=== PATIENT | female | born 1965 | race Caucasian/White ===

== ENCOUNTER 2018-02-06 18:44 | Emergency (ER) | payer OTHER ==
--- NOTE | 2018-02-06 18:51 | PDOC ---
Rapid Medical Evaluation Time Seen by Provider: 02/06/18 18:48 Medical Evaluation: Allergies Allergy/AdvReac Type Severity Reaction Status Date / Time No Known Allergies Allergy Verified 04/16/17 07:38 02/06/18 18:49 Healthy 53-year-old female smoker s/p shoulder surgery today in [place], presents stating "I can't breathe". Sensation began while in PACU, but has been worsening. Not taking pain meds. Alert, oriented, no distress. RRR, S1/S2. Lungs CTAB, breath sounds present and equal bilaterally. Shoulder dressing clean and dry. -EKG -Cardiac labs -CXR -To Main ED for further evaluation
[2018-02-06 18:52] VITALS: BP 143/85; PULSE 70; TEMP 98.4; BMI 30.7
[2018-02-06 19:55] LABS: EOS % 2.7 % (0-4.5); HEMATOCRIT 39.3 % (32.4-45.2); LYMPH % 23.3 % (8-40); MCH 27.5 pg (25.7-33.7); MCHC 33.1 g/dl (32.0-36.0); MEAN CELL VOLUME 82.9 fl (80-96); MEAN PLT VOLUME 9.1 fl (7.5-11.1); MONO % 5.5 % (3.8-10.2); NEUT % 67.5 % (42.8-82.8); PLATELET COUNT 230 K/MM3 (134-434); RBC 4.74 M/mm3 (3.60-5.2); RDW 15.1 % (11.6-15.6); WHITE BLOOD COUNT 10.4 K/mm3 (4.0-10.0)
[2018-02-06 20:13] LABS: INR 1.03 (0.83-1.09); PROTHROMBIN TIME (PATIENT) 11.6 SEC (9.7-13.0)
[2018-02-06 20:19] LABS: ALBUMIN 3.8 g/dl (3.4-5.0); ANION GAP 11 MMOL/L (8-16); BILIRUBIN,TOTAL 0.4 mg/dL (0.2-1.0); BLOOD UREA NITROGEN 11 mg/dL (7-18); CALCIUM 8.6 mg/dL (8.5-10.1); CHLORIDE 107 mmol/L (98-107); CO2 24 mmol/L (21-32); CREATININE 0.7 mg/dL (0.55-1.02); GLUCOSE,RANDOM 91 mg/dL (74-106); POTASSIUM 4.4 mmol/L (3.5-5.1); SGOT/AST 18 U/L (15-37); SGPT/ALT 23 U/L (12-78); SODIUM 142 mmol/L (136-145)
[2018-02-06 20:22] LABS: ALK PHOS 80 U/L (45-117)
--- NOTE | 2018-02-06 20:54 | PDOC ---
History of Present Illness - General Chief Complaint: Shortness of Breath Stated Complaint: SHORTNESS OF BREATH Time Seen by Provider: 02/06/18 18:48 - History of Present Illness Initial Comments: 02/06/18 22:12 The patient is a 53 year old female with no significant PMH who presents for evaluation of shortness of breath. The patient is accompanied by family who assisted in providing the history. They note that the patient had surgery on her shoulder today in [place] and she has noted shortness of breath since recovering in PACU and after discharging that has been intermittent prompting her presentation to the ED for further evaluation. She notes that she has right shoulder pain and has not taken any pain medications since her discharge. She otherwise denies fevers, chills, chest pain, nausea, vomiting, abdominal pain, or changes with urination or bowel movements. Past History - Past Medical History Allergies/Adverse Reactions: Allergies Allergy/AdvReac Type Severity Reaction Status Date / Time No Known Allergies Allergy Verified 02/06/18 18:49 Home Medications: Ambulatory Orders Ibuprofen [Motrin -] 400 mg PO TID #21 tablet 04/16/17 COPD: No DVT: No - Immunization History Immunization Up to Date: No - Suicide/Smoking/Psychosocial Hx Smoking Status: Yes Smoking History: Current every day smoker Have you smoked in the past 12 months: Yes Number of Cigarettes Smoked Daily: 10 Information on smoking cessation initiated: Yes 'Breaking Loose' booklet given: 02/06/18 Hx Alcohol Use: No Drug/Substance Use Hx: No Substance Use Type: None Review of Systems - Review of Systems Comments:: 02/06/18 22:15 Constitutional: No fevers, chills, fatigue, malaise HEENT: No Rhinorrhea, nasal congestion, visual changes Cardiovascular: No chest pain, syncope, palpitations, lightheadedness Respiratory: SOB No Cough, Hemoptysis, Gastrointestinal: No Abdominal pain, Nausea, Vomiting, Constipation, Diarrhea, Melena Genitourinary: No Dysuria, Frequency, Urgency, Hesitancy, Hematuria, Flank pain Musculoskeletal: Right shoulder pain. No Myalgia, arthralgia Skin: No rashes, itching, bruising, pallor Neurologic: No Headache, Dizziness, Numbness, Weakness, or Tingling Psychiatric: No Hallucinations. No SI or HI *Physical Exam - Vital Signs Last Vital Signs Temp Pulse Resp BP Pulse Ox 98.4 F 70 18 143/85 100 02/06/18 18:49 02/06/18 18:49 02/06/18 18:49 02/06/18 18:49 02/06/18 18:49 - Physical Exam Comments: 02/06/18 22:15 General Appearance: Nourished. No Apparent Distress HEENT: No Pharyngeal Erythema, Tonsillar Exudate, Tonsillar Erythema Neck: No Cervical Lymphadenopathy Respiratory/Chest: Lungs Clear, Normal Breath Sounds. No Crackles, Rales, Rhonchi, Wheezing Cardiovascular: Regular Rhythm, Regular Rate. No Murmur, Gallops, Rubs Gastrointestinal/Abdominal: Normal Bowel Sounds, Soft. No Guarding, Rebound, Tenderness Musculoskeletal: Bandage to the right shoulder. No CVA Tenderness Extremity: Normal Capillary Refill Integumentary: Normal Color, Dry, Warm Neurologic: Fully Oriented, Alert, Normal Mood/Affect, Normal Response, Heart Score/ECG Review #1 ECG reviewed & interpreted by me at: 22:16 General ECG Interpretation: Sinus Rhythm, Normal Rate, Normal Intervals, No acute ischemic changes ED Treatment Course - LABORATORY CBC & Chemistry Diagram: 02/06/18 19:45 02/06/18 19:45 - ADDITIONAL ORDERS Additional order review: Laboratory Results 02/06/18 02/06/18 19:45 19:45 PT with INR 11.60 INR 1.03 Sodium 142 Potassium 4.4 Chloride 107 Carbon Dioxide 24 Anion Gap 11 BUN 11 Creatinine 0.7 Creat Clearance w eGFR > 60 Random Glucose 91 Calcium 8.6 Total Bilirubin 0.4 AST 18 ALT 23 Alkaline Phosphatase 80 Creatine Kinase 435 H Creatine Kinase Index 0.6 CK-MB (CK-2) 2.83 Troponin I < 0.02 Total Protein 7.0 Albumin 3.8 02/06/18 19:45 RBC 4.74 MCV 82.9 MCHC 33.1 RDW 15.1 MPV 9.1 Neutrophils % 67.5 Lymphocytes % 23.3 Monocytes % 5.5 Eosinophils % 2.7 Basophils % 1.0 Medical Decision Making - Medical Decision Making 02/06/18 22:16 The patient is a 53 year old female with no significant PMH who presents for evaluation of shortness of breath. Differential includes but is not limited to : ACS, Arrhythmia, Pneumothorax, Infectious, Metabolic derangement. Given the patient's history and physical exam, a cbc, cmp, troponin, ekg, and chest plain film were obtained. CBC, cmp, troponin were unremarkable. Chest plain film was unremarkable. We treated the patient's pain with percocet here in the ED. It is likely her symptoms are related to the patient's surgery and she has follow up scheduled in 1 week. We are comfortable discharging the patient home with follow up with her primary care provider and surgeon. We discussed the results, plan, and return precautions with the patient who voiced understanding and is agreeable with the plan. *DC/Admit/Observation/Transfer Diagnosis at time of Disposition: Shortness of breath - Discharge Dispostion Disposition: HOME Condition at time of disposition: Stable Decision to Admit order: No - Referrals - Patient Instructions Printed Discharge Instructions: DI for Shortness of Breath Additional Instructions: Please return to the ER if you experience concerning or worsening symptoms including worsening chest pain, shortness of breath, or fevers. Your lab results and chest x-ray were normal here in the ER. Please make sure you follow up with your surgeon in 1 week to discuss your ER visit and further management of your symptoms. Print Language: QATARI - Post Discharge Activity
--- NOTE | 2018-02-06 21:39 | PDOC ---
Attending Attestation - [facility] HPI: 02/07/18 00:01 Patient is a 53 year old female with no significant past medical history who presents to the ED with complaints of shortness of breath that began earlier today. Patient reports having shoulder surgery this morning in [place], starting since leaving the surgery he has been experiencing constant shortness of breath. PAtient reports after being discharged, the sob has been intermittent , prompting her come into the ED for further evaluation and verify no complications occurred. She reports not taking any medications for the shortness of breath since its developed. Denies chest pain, sob. Denies nausea, vomiting. Denies fevers, chills. Denies contact with sick individuals, out of state travelling. Denies any other symptoms. Allergies: None Social history: Current smoker. No alcohol. No illicit drugs. Surgical history: None PMD: None - Physicial Exam PE: 02/07/18 00:01 GENERAL: Well developed, well nourished. Awake and alert. In no acute distress. HEENT: Normocephalic, atraumatic. PERRLA, EOMI. No conjunctival pallor. Sclerae are non -icteric. Moist mucous membranes. Oropharynx is clear. NECK: Supple. Full ROM. No JVD. Carotid pulses 2+ and symmetric, without bruits. No thyromegaly. No lymphadenopathy. CARDIOVASCULAR: Regular rate and rhythm. No murmurs, rubs, or gallops. Distal pulses are 2+ and symmetric. PULMONARY: No evidence of respiratory distress. Lungs clear to auscultation bilaterally. No wheezing, rales or rhonchi. ABDOMINAL: Soft. Non-tender. Non-distended. No rebound or guarding. No organomegaly. Normoactive bowel sounds. MUSCULOSKELETAL: . No bony deformities or tenderness. No CVA tenderness. EXTREMITIES: +Bandaged right shoulder. +sensation intact. +right hand warm No cyanosis. No clubbing.No calf tenderness. SKIN: Warm and dry. Normal capillary refill. No rashes. No jaundice. NEUROLOGICAL: Alert, awake, appropriate. Cranial nerves 2-12 intact. No deficits to light touch and temperature in face, upper extremities and lower extremities. No motor deficits in the in face, upper extremities and lower extremities. Normoreflexic in the upper and lower extremities. Normal speech. Toes are downgoing bilaterally. Gait is normal without ataxia. PSYCHIATRIC: Cooperative. Good eye contact. Appropriate mood and affect. <Marcos Rogers - Last Filed: 02/07/18 00:01> - Resident Resident Name: Cedric Juarez - ED Attending Attestation I have performed the following: I have examined & evaluated the patient, The case was reviewed & discussed with the resident, I agree w/resident's findings & plan, Exceptions are as noted - HPI HPI: 02/06/18 21:34 53 yo female s/p rt shoulder surgery earlier today and p/w pain -she did not fill her pain RX yet and she states she felt somewhat short of breath, she denies any substernal chest pain -normal vital signs with 100 % on room air and pulse of 64 bpm -she is 100% on room air - Medical Decision Making 02/07/18 02:18 no evidence of hypoxemia,no tachypnea pt was not tachycardic ,lungs cta b/l and pulse ox was 100 on room air <Divya Justice - Last Filed: 02/07/18 02:20>
--- NOTE | 2018-02-07 09:45 | EKG ---
Test Reason : Blood Pressure : / mmHG Vent. Rate : 069 BPM Atrial Rate : 069 BPM P-R Int : 186 ms QRS Dur : 074 ms QT Int : 392 ms P-R-T Axes : 045 023 009 degrees QTc Int : 420 ms NORMAL SINUS RHYTHM NORMAL ECG WHEN COMPARED WITH ECG OF 03-FEB-2009 10:24, NO SIGNIFICANT CHANGE WAS FOUND Confirmed by Richie Beauchamp MD ([id number]) on 02/07/2018 9:45:30 AM Referred By: Confirmed By:Richie Beauchamp MD
== END 2018-02-06 22:10 | disposition home or self-care (01) ==
LOC: JER 18:44
DX: R06.02 Shortness of breath (principal); G89.18 Other acute postprocedural pain; Z98.890 Other specified postprocedural states
CPT/HCPCS: 36415; 71046-TC-FY; 80053; 82550; 82553; 84484; 85025; 85610; 93005; 93010; 99282-25

== ENCOUNTER 2018-05-28 10:45 | Emergency (ER) | payer OTHER ==
[2018-05-28 11:09] VITALS: BP 145/81; PULSE 68; TEMP 98.2; BMI 29.8
[2018-05-28] MEDS ORDERED: KETOROLAC TROMETHAMINE 60 MG/2 ML VIAL IM ONE (12:08)
[2018-05-28] MEDS ORDERED: CYCLOBENZAPRINE HCL 5 MG TABLET PO ONE (12:09)
[2018-05-28] MEDS ORDERED: KETOROLAC TROMETHAMINE 60 MG/2 ML VIAL ONE (12:10)
[2018-05-28] MEDS ORDERED: CYCLOBENZAPRINE HCL 10 MG TABLET (FP) ONE (12:10)
--- NOTE | 2018-05-28 12:10 | PDOC ---
History of Present Illness - General Chief Complaint: Back Pain Stated Complaint: LOWER BACK PAIN Time Seen by Provider: 05/28/18 11:51 History Source: Patient Exam Limitations: No Limitations - History of Present Illness Initial Comments: CHIEF COMPLAINT: 53 y/o afebrile female c/o right sided low back pain radiating down her right leg x 1 week. HISTORY OF PRESENT ILLNESS: The patient does not recall an injury or falling. She has been taking tylenol without relief. She denies saddle anesthesia, numbness/tingling of lower extremities, bowel/bladder incontinence. Vital signs on arrival are within normal limits. REVIEW OF SYSTEMS: GENERAL/CONSTITUTIONAL: No fever GENITOURINARY: No dysuria, frequency, or change in urination. MUSCULOSKELETAL: +low back pain and right leg pain. No joint or muscle swelling or pain. No neck pain. SKIN: No rash or easy bruising. NEUROLOGIC: No headache, vertigo, loss of consciousness, or loss of sensation. PHYSICAL EXAM: GENERAL: The patient is awake, alert, and fully oriented, in no acute distress. She is ambulatory with slight limp. ABDOMEN: Soft, non-distended, non-tender even to deep palpation, no hepatomegaly or splenomegaly, no masses. BACK: No midline lumbar TTP or step offs. Right sided lumbar paravertebral TTP L4-L5 NEURO: No saddle anesthesia. Motor and sensory intact b/l LEs. EXTREMITIES: Normal range of motion, no edema. Past History - Past Medical History Allergies/Adverse Reactions: Allergies Allergy/AdvReac Type Severity Reaction Status Date / Time No Known Allergies Allergy Verified 05/28/18 11:02 Home Medications: Ambulatory Orders Ibuprofen [Motrin -] 400 mg PO TID #21 tablet 04/16/17 Cyclobenzaprine HCl [Flexeril -] 10 mg PO TID #12 tablet 05/28/18 COPD: No DVT: No - Immunization History Immunization Up to Date: No - Suicide/Smoking/Psychosocial Hx Smoking Status: Yes Smoking History: Never smoked Have you smoked in the past 12 months: Yes Number of Cigarettes Smoked Daily: 10 'Breaking Loose' booklet given: 02/06/18 Hx Alcohol Use: No Drug/Substance Use Hx: No Substance Use Type: None *Physical Exam - Vital Signs Last Vital Signs Temp Pulse Resp BP Pulse Ox 98.2 F 68 18 145/81 99 05/28/18 11:00 05/28/18 11:00 05/28/18 11:00 05/28/18 11:00 05/28/18 11:00 Moderate Sedation - Procedure Monitoring Vital Signs: Procedure Monitoring Vital Signs Temperature 98.2 F 05/28/18 11:00 Pulse Rate 68 05/28/18 11:00 Respiratory Rate 18 05/28/18 11:00 Blood Pressure 145/81 05/28/18 11:00 O2 Sat by Pulse Oximetry (%) 99 05/28/18 11:00 Medical Decision Making - Medical Decision Making A/P: 53 y/o female with right sided low back pain and right sided sciatica. Will give IM toradol and PO flexeril in the ER. Will send rx for flexeril to pharmacy - informed her it may cause drowsiness. Suggested she take OTC ibuprofen with the flexeril as well, and demonstrated stretching to be done 5x per day. Instructed her to f/u with Dr. Hawley in 3 days if no improvement. The patient verbalizes understanding of all instructions, has no further questions and is awaiting discharge. *DC/Admit/Observation/Transfer Diagnosis at time of Disposition: Sciatic leg pain Low back pain Qualifiers: Chronicity: acute Back pain laterality: right Sciatica presence: with sciatica Sciatica laterality: sciatica of right side Qualified Code(s): M54.41 - Lumbago with sciatica, right side - Discharge Dispostion Disposition: HOME Condition at time of disposition: Good - Prescriptions Prescriptions: Cyclobenzaprine HCl [Flexeril -] 10 mg PO TID #12 tablet - Referrals Referrals: Nohemy Hawley MD [Primary Care Provider] - 3 days - Patient Instructions Printed Discharge Instructions: DI for Back Pain With Sciatica Additional Instructions: Discharge Instruction: -You have low back pain with sciatica -A prescription for a muscle relaxer has been sent to your pharmacy; it may cause you to be sleepy -Please take 600mg of over the counter ibuprofen 3 times per day as well with food -Stretch your low back and right leg 5 times per day -Use heating pad to your lower back -Follow up with Dr. Hawley in 3 days if no improvement Print Language: MOHAWK - Post Discharge Activity
== END 2018-05-28 12:17 | disposition home or self-care (01) ==
LOC: JERFT 10:45 → JER 10:45 → JERFT 12:17
PROC: 3E0233Z Introduction of Anti-inflammatory into Muscle, Percutaneous Approach (ICD-10-PCS; principal; 2018-05-28)
DX: M54.41 Lumbago with sciatica, right side (principal); Z87.891 Personal history of nicotine dependence
CPT/HCPCS: 99281-25

== ENCOUNTER 2019-06-13 14:49 | Emergency (ER) | payer SELFPAY ==
[2019-06-13 15:23] VITALS: BP 121/75; PULSE 84; TEMP 97.9; BMI 29.0
--- NOTE | 2019-06-13 15:26 | PDOC ---
Rapid Medical Evaluation Chief Complaint: Cold Symptoms Time Seen by Provider: 06/13/19 15:20 Medical Evaluation: Allergies Allergy/AdvReac Type Severity Reaction Status Date / Time No Known Allergies Allergy Verified 05/28/18 11:02 Vital Signs Temp Pulse Resp BP Pulse Ox 97.9 F 84 16 121/75 99 06/13/19 15:19 06/13/19 15:19 06/13/19 15:19 06/13/19 15:19 06/13/19 15:19 06/13/19 15:25 Pt c/o: cough x 1 month, pain to lll with coughing, no other complaints, no travel, + childhood asthma pt on brief exam: lcta, no reprod tenderness, vss Pt ordered for: cxr pt to proceed to the ED Discharge Disposition - Diagnosis Cough - Discharge Dispostion Condition at time of disposition: Stable - Referrals - Patient Instructions - Post Discharge Activity
[2019-06-13] MEDS ORDERED: guaiFENesin/CODEINE 10 ML UNIT-DOSE CUPS PO ONE (16:08)
[2019-06-13] MEDS ORDERED: guaiFENesin/CODEINE 5 ML UNIT-DOSE CUPS PO ONE (16:11)
--- NOTE | 2019-06-13 16:12 | PDOC ---
History of Present Illness - General Chief Complaint: Cold Symptoms Stated Complaint: CHRONIC COUGHING Time Seen by Provider: 06/13/19 15:20 History Source: Patient Exam Limitations: Clinical Condition - History of Present Illness Initial Comments: 06/13/19 16:13 Patient with no significant past medical history present with complaint of 1 month history of persistent dry cough and nasal congestion. Patient reported she has a lot of congestion in her apartment which has been causing her to cough. Patient reported intermittent back pains from coughing. Patient reports taking [id number] Tylenol medication for the cough which helps for the cough but comes back again. Denies shortness of breath, chest pain, fever, chills, body aches, dizziness. Denies any other symptoms Is this a multiple visit Asthma Patient?: No Timing/Duration: other (1 month) Associated Symptoms: reports: cough. denies: chest pain, diaphoresis, fever/ chills, headaches, shortness of breath, weakness Past History - Past Medical History Allergies/Adverse Reactions: Allergies Allergy/AdvReac Type Severity Reaction Status Date / Time No Known Allergies Allergy Verified 05/28/18 11:02 Home Medications: Ambulatory Orders Ibuprofen [Motrin -] 400 mg PO TID #21 tablet 04/16/17 Cyclobenzaprine HCl [Flexeril -] 10 mg PO TID #12 tablet 05/28/18 Benzonatate [Tessalon Pearls -] 100 mg PO Q8H PRN #20 capsule 06/13/19 Methylprednisolone [Medrol Dose Varun] 4 mg PO ASDIR #21 tablet 06/13/19 Montelukast Na [Singulair -] 10 mg PO DAILY #7 tablet 06/13/19 COPD: No DVT: No - Immunization History Immunization Up to Date: No - Psycho Social/Smoking Cessation Hx Smoking Status: Yes Smoking History: Current every day smoker Have you smoked in the past 12 months: Yes Number of Cigarettes Smoked Daily: 10 Information on smoking cessation initiated: No 'Breaking Loose' booklet given: 02/06/18 Hx Alcohol Use: No Drug/Substance Use Hx: No Substance Use Type: None Review of Systems - Review of Systems Able to Perform ROS?: Yes Is the patient limited [place] proficient: No Constitutional: No: Chills, Fever, Malaise HEENTM: No: Symptoms Reported, See HPI, Eye Pain, Blurred Vision, Tearing, Recent change in vision, Double Vision, Cataracts, Ear Pain, Ocular Prothesis, Ear Discharge, Nose Pain, Nose Congestion, Tinnitus, Nose Bleeding, Hearing Loss , Throat Pain, Throat Swelling, Mouth Pain, Dental Problems, Difficulty Swallowing, Mouth Swelling, Other Respiratory: Yes: Symptoms reported, See HPI, Cough. No: Orthopnea, Shortness of Breath, SOB with Exertion, SOB at Rest, Stridor, Wheezing, Productive cough, Hemoptysis, Other : No: Symptoms Reported Musculoskeletal: No: Symptoms Reported Integumentary: No: Symptoms Reported, Rash Neurological: No: Symptoms reported All Other Systems: Reviewed and Negative *Physical Exam - Vital Signs Last Vital Signs Temp Pulse Resp BP Pulse Ox 97.9 F 84 16 121/75 99 06/13/19 15:19 06/13/19 15:19 06/13/19 15:19 06/13/19 15:19 06/13/19 15:19 - Physical Exam 06/13/19 16:08 GENERAL: Well developed, well nourished. Awake and alert. No acute distress. HEENT: Normocephalic, atraumatic. PERRLA, EOMI. No conjunctival pallor. Sclera are non-icteric. Moist mucous membranes. Oropharynx is clear. NECK: Supple. Full ROM. CARDIOVASCULAR: Regular rate and rhythm. No murmurs, rubs, or gallops. Distal pulses are 2+ and symmetric. PULMONARY: No evidence of respiratory distress. Lungs clear to auscultation bilaterally. No wheezing, rales or rhonchi. ABDOMINAL: Soft. Non-tender. Non-distended. No rebound or guarding. No organomegaly. Normoactive bowel sounds. MUSCULOSKELETAL Normal range of motion at all joints. SKIN: Warm and dry. Normal capillary refill. No rashes. No cyanosis. NEUROLOGICAL: Alert, awake, appropriate. Gait is normal without ataxia. PSYCHIATRIC: Cooperative. Good eye contact. Appropriate mood General Appearance: Yes: Nourished, Appropriately Dressed. No: Apparent Distress Medical Decision Making - Medical Decision Making 06/13/19 16:14 Patient with no significant past medical history present with complaint of 1 month history of persistent dry cough and nasal congestion. Patient reported she has a lot of congestion in her apartment which has been causing her to cough. Patient reported intermittent back pains from coughing. Patient reports taking [id number] Tylenol medication for the cough which helps for the cough but comes back again. Denies shortness of breath, chest pain, fever, chills, body aches, dizziness. Denies any other symptoms Clinical exam unremarkable with lungs clear to auscultation bilateral. Patient afebrile. Chest x-ray shows no acute infiltrate or pathology and unchanged from chest x-ray from a year ago. Likely viral URI and stable for outpatient management on Tessalon Perles and Medrol pack given prolonged cough with single antihistamine and pulmonology follow-up Discharge - Discharge Information Problems reviewed: Yes Clinical Impression/Diagnosis: Cough, URI, acute Condition: Stable Disposition: HOME - Admission No - Additional Discharge Information Prescriptions: Benzonatate [Tessalon Pearls -] 100 mg PO Q8H PRN #20 capsule PRN Reason: Cough Methylprednisolone [Medrol Dose Varun] 4 mg PO ASDIR #21 tablet Montelukast Na [Singulair -] 10 mg PO DAILY #7 tablet - Follow up/Referral Referrals: Boby Bradford MD [Primary Care Provider] - Kelton Camejo MD [Staff Physician] - - Patient Discharge Instructions Patient Printed Discharge Instructions: DI for Viral Upper Respiratory Infection -- Adult Additional Instructions: Your chest x-ray is normal and unchanged from chest x-ray from last year. Take prescribed medication as prescribed for cough. Follow-up with referring talent acquisition consultant if symptoms persist for more than 5 days Jorgensen radiografa de trax es normal y no dwyer cambiado desde la radiografa de trax del ao pasado. Merrick la medicacin prescrita segn lo prescrito para la tos. Seguimiento con el neumlogo remitente si los sntomas persisten por ms de 5 ramos - Post Discharge Activity
== END 2019-06-13 16:15 | disposition home or self-care (01) ==
LOC: JERFT 14:49
DX: J06.9 Acute upper respiratory infection, unspecified (principal); R05 Cough; F17.210 Nicotine dependence, cigarettes, uncomplicated
CPT/HCPCS: 71046-TC-FY; 99281-25

== ENCOUNTER 2021-04-27 11:13 | Emergency (ER) | payer OTHER ==
[2021-04-27 11:57] VITALS: BP 151/76; PULSE 85; TEMP 98.1; BMI 30.1
== END 2021-04-27 13:30 | disposition home or self-care (01) ==
LOC: JERFT 11:13
DX: B00.1 Herpesviral vesicular dermatitis (principal)
CPT/HCPCS: 99281-25

== ENCOUNTER 2024-09-23 13:28 | Emergency (ER) | payer OTHER ==
[2024-09-23 13:46] VITALS: BP 155/83; PULSE 78; RESP 18; TEMP 98.1; BMI 31.6
[2024-09-23] MEDS ORDERED: ACETAMINOPHEN INJECTION 100 ML ONE (14:50)
[2024-09-23] MEDS: ACETAMINOPHEN 1000 MG/100 ML BAG IVPB ONE (15:05)
[2024-09-23 15:09] LABS: ABSOLUTE IMMATURE GRANULOCYTES 0.03 x10^3/uL (0.0-0.031); BASOPHILS # 0.03 x10^3/uL (0.01-0.08); EOSINOPHIL % 1.7 % (0.7-5.8); EOSINOPHILS # 0.17 x10^3/uL (0.04-0.36); HEMATOCRIT 46.9 % (34.1-44.9); HEMOGLOBIN 14.7 g/dL (11.2-15.7); MCHC 31.3 g/dl (32.2-35.5); MEAN CELL VOLUME 88.7 fl (79.4-94.8); MEAN PLT VOLUME 11.6 fl (9.4-12.3); MONOCYTE # 0.62 x10^3/uL (0.24-0.86); MONOCYTE % 6.2 % (4.7-12.5); PLATELET COUNT 203 x10^3/uL (182-369); RDW 13.5 % (12.3-16.6)
[2024-09-23 15:14] LABS: EPI CELLS 9 /uL (0-25.1); HYALINE CASTS 0 /uL (0-3.1); URINE APPEARANCE CLEAR; URINE BACTERIA 53 /uL (0-1359); URINE BILIRUBIN NEGATIVE (NEGATIVE); URINE COLOR YELLOW; URINE GLUCOSE (UA) NEGATIVE (NEGATIVE); URINE KETONE TRACE (NEGATIVE); URINE LEUK ESTERASE TRACE (NEGATIVE); URINE NITRITE NEGATIVE (NEGATIVE); URINE PROTEIN NEGATIVE (NEGATIVE); URINE RBC 14 /uL (0-23.9); URINE UROBILINOGEN 0.2 mg/dL (0.2-1.0); URINE WBC 23 /uL (0-25.8)
[2024-09-23 16:02] LABS: ALBUMIN 3.9 g/dl (3.4-5.0); BLOOD UREA NITROGEN 13.7 mg/dL (7-18); CALCIUM 9.8 mg/dL (8.5-10.1); POTASSIUM 4.8 mmol/L (3.5-5.1)
[2024-09-23 16:07] LABS: BILIRUBIN,TOTAL 0.4 mg/dL (0.2-1); TOT PROT 7.2 g/dl (6.4-8.2)
== END 2024-09-23 18:56 | disposition home or self-care (01) ==
LOC: JER 13:28
PROC: 3E033NZ Introduction of Analgesics, Hypnotics, Sedatives into Peripheral Vein, Percutaneous Approach (ICD-10-PCS; principal; 2024-09-23)
DX: M54.50 Low back pain, unspecified (principal); K57.32 Diverticulitis of large intestine without perforation or abscess without bleeding; R10.11 Right upper quadrant pain; R10.31 Right lower quadrant pain; R11.0 Nausea; M25.522 Pain in left elbow; D25.9 Leiomyoma of uterus, unspecified
CPT/HCPCS: 36415; 73070-TC-LT-FY; 74177-TC; 76705-TC; 80053; 81003; 83690; 85025; 96374; 99285-25; J0131; Q9967